=== PATIENT | female | born 1995 | race Caucasian/White ===

== ENCOUNTER 2017-10-10 08:27 | Emergency (ER) | payer BC ==
[2017-10-10 08:27] VITALS: BP_SYST 121
[2017-10-10 08:55] VITALS: BP_SYST 129
== END 2017-10-10 08:55 | disposition home or self-care (01) ==
LOC: SED 08:27
DX: O26.893 Other specified pregnancy related conditions, third trimester (principal); Z3A.31 31 weeks gestation of pregnancy; V43.52XA Car driver injured in collision with other type car in traffic accident, initial encounter; Y93.89 Activity, other specified; Y92.410 Unspecified street and highway as the place of occurrence of the external cause; Y99.8 Other external cause status
CPT/HCPCS: 99281; 99283

== ENCOUNTER 2017-10-10 09:30 | Observation (INO) | payer BC ==
[~2017-10-10] VITALS: Ht 172.7 cm; Wt 72.6 kg
[2017-10-10 10:12] VITALS: BP_SYST 109
== END 2017-10-10 13:24 | disposition home or self-care (01) ==
LOC: SPU 09:30
PROVIDERS: ADMIT Obstetrics & Gynecology; ATTEND Obstetrics & Gynecology
DX: Z04.1 Encounter for examination and observation following transport accident (principal); Z3A.30 30 weeks gestation of pregnancy
CPT/HCPCS: 76805-TC; 81002-TC; G0378

== ENCOUNTER 2017-11-27 08:45 | Inpatient (IN) | payer BC ==
[~2017-11-27] VITALS: Ht 170.2 cm; Wt 76.2 kg
[2017-11-27] MEDS ORDERED: OXYTOCIN/0.9 % SODIUM CHLORIDE 1,000 ML IV SCH ×2 (09:08→23:11)
[2017-11-27] MEDS ORDERED: LR 1,000 ML IV SCH (09:08)
[2017-11-27] MEDS ORDERED: NALBUPHINE HCL 10 MG/ML AMP IVP PRN (09:15)
[2017-11-27] MEDS ORDERED: TERBUTALINE SULFATE 1 MG/ML VIAL SUBCUT ONE (09:15)
[2017-11-27 10:00] LABS: HEMATOCRIT 32.5 % (36-48); MEAN CORPUSCULAR HEMOGLOBIN 30 pg (27-31); MEAN CORPUSCULAR HGB CONC 34 % (32-36); MEAN CORPUSCULAR VOLUME 90 fL (79.0-98.0); PLATELET COUNT (AUTO) 305 K/uL (130-430); RED BLOOD CELL COUNT(AUTO) 3.62 MIL/uL (4.2-6.2); RED CELL DISTRIBUTION WIDTH 12.9 % (9.0-15.0); WHITE BLOOD COUNT (AUTO) 10.9 K/uL (4.5-11.0)
[2017-11-27 10:25] LABS: BAND % (MANUAL) 3 % (0-6); BASOPHILS % (MANUAL) 0 % (0-2); EOSINOPHILS % (MANUAL) 4 % (0-7); LYMPHOCYTES % (MANUAL) 12 % (20-46); MONOCYTES % (MANUAL) 3 % (0-11)
[2017-11-27 10:28] VITALS: BP_SYST 126
[2017-11-27 11:16] LABS: BARBITURATE, URINE NEGATIVE (NEG <=200); BENZODIAZEPINE, URINE NEGATIVE (NEG <=150); CANNABINOID, URINE NEGATIVE (NEG <=50); COCAINE, URINE NEGATIVE (NEG <=150); METHAMPHETAMINES SCREEN,URINE NEGATIVE (NEG <=500); OPIATE, URINE NEGATIVE (NEG <=100); PHENCYCLIDINE SCREEN,URINE NEGATIVE (NEG <=25); UR TRICYCLIC ANTIDEPRESSANTS NEGATIVE (NEG <=300); URINE AMPHETAMINE NEGATIVE (NEG <=500); URINE METHADONE NEGATIVE (NEG <=200); URINE OXYCODONE SCREEN NEGATIVE (NEG <=100); URINE PROPOXYPHENE SCREEN NEGATIVE (NEG <=300)
[2017-11-27] MEDS ORDERED: AMPICILLIN SODIUM 2 GM in NS 100 ML IV ONE (12:00)
[2017-11-27] MEDS: AMPICILLIN SODIUM 1 GM in NS 50 ML IV SCH ×2 (16:05→20:04)
[2017-11-27] MEDS ORDERED: fentaNYL CITRATE/PF 100 MCG/2 ML AMP ONE (16:37)
[2017-11-27] MEDS ORDERED: ROPIVACAINE 0.2% 100 ML ONE (16:37)
[2017-11-27] MEDS ORDERED: LR 500 ML IV ONE (16:52)
[2017-11-27] MEDS ORDERED: FENT2mCg/mL-ROPIVA0.2%/NS EPID 150 ML EP SCH (17:00)
[2017-11-27] MEDS ORDERED: TEMAZEPAM 15 MG CAPSULE PO PRN (21:00)
[2017-11-27] MEDS ORDERED: ONDANSETRON HCL 4 MG/2 ML VIAL IVP PRN (21:00)
[2017-11-27] MEDS ORDERED: ONDANSETRON HCL 4 MG/2 ML VIAL ONE (21:02)
[2017-11-27] MEDS ORDERED: OXYTOCIN/0.9 % SODIUM CHLORIDE 1,000 ML IV ONE (23:11)
[2017-11-27] MEDS ORDERED: HYDROCORTISONE 0.5%, 28.35 GM TOPICAL CREAM TP PRN (23:15)
[2017-11-27] MEDS ORDERED: MEASLES,MUMPS&RUBELLA VACC/PF 12500 UNIT/0.5 ML VIAL SUBQ PRN (23:15)
[2017-11-27] MEDS ORDERED: RHO(D) IMMUNE GLOBULIN/MALTOSE 1500 UNITS/1.3 ML (WINHRO) IM PRN (23:15)
[2017-11-27] MEDS ORDERED: DIPH-TET-PERTUS Vaccine 0.5 ML VIAL (ADACEL) I.M. PRN (23:15)
[2017-11-27] MEDS ORDERED: ACETAMINOPHEN 325 MG TABLET PO PRN (23:15)
[2017-11-27] MEDS ORDERED: DERMOPLAST SPRAY TP PRN (23:15)
[2017-11-27] MEDS ORDERED: DOCUSATE SODIUM 100 MG CAPSULE PO PRN (23:15)
[2017-11-27] MEDS ORDERED: METHYLERGONOVINE MALEATE 0.2 MG TABLET PO PRN (23:15)
[2017-11-27] MEDS ORDERED: LANOLIN 7 GM OINT. TP PRN (23:15)
[2017-11-27] MEDS ORDERED: GLYCERIN/WITCH HAZEL (TUCKS PADS) TP PRN (23:15)
[2017-11-27] MEDS ORDERED: ANUSOL 1 EA SUPP.RECT (PREPARATION H) RC PRN (23:15)
[2017-11-27] MEDS ORDERED: SENNOSIDES/DOCUSATE SODIUM 1 TAB TABLET(SENOKOT-S) PO PRN (23:15)
[2017-11-28] MEDS: IBUPROFEN 600 MG TABLET PO SCH ×4 (00:03→17:34)
[2017-11-28 05:48] LABS: BASOPHILS % (AUTO) 0.2 % (0.0-2.0); EOSINOPHILS # (AUTO) 0.2 K/uL (0.0-0.4); EOSINOPHILS % (AUTO) 1.2 % (0.0-4.0); HEMATOCRIT 28.8 % (36-48); HEMOGLOBIN 9.8 g/dL (12.0-16.0); LYMPHOCYTES # (AUTO) 1.8 K/uL (1.0-5.5); LYMPHOCYTES % (AUTO) 9.7 % (20.5-51.5); MEAN CORPUSCULAR HEMOGLOBIN 30 pg (27-31); MEAN CORPUSCULAR HGB CONC 34 % (32-36); MEAN CORPUSCULAR VOLUME 89 fL (79.0-98.0); MONOCYTES # (AUTO) 1.6 K/uL (0.0-1.0); MONOCYTES % (AUTO) 8.4 % (1.7-9.3); NEUTROPHILS # (AUTO) 14.9 K/uL (1.8-7.7); NEUTROPHILS % (AUTO) 80.5 % (40.0-70.0); PLATELET COUNT (AUTO) 272 K/uL (130-430); RED BLOOD CELL COUNT(AUTO) 3.25 MIL/uL (4.2-6.2); RED CELL DISTRIBUTION WIDTH 12.9 % (9.0-15.0); WHITE BLOOD COUNT (AUTO) 18.5 K/uL (4.5-11.0)
[2017-11-28] MEDS ORDERED: BUPIVACAINE /PF 0.25% 30 ML VIAL INJ ONE (08:57)
[2017-11-29] MEDS: IBUPROFEN 600 MG TABLET PO SCH ×2 (00:06→05:46)
== END 2017-11-29 11:10 | disposition home or self-care (01) | DRG 775 ==
LOC: SPU 08:45
PROVIDERS: ADMIT Obstetrics & Gynecology; ATTEND Obstetrics & Gynecology
PROC: 10E0XZZ Delivery of Products of Conception, External Approach (ICD-10-PCS; principal; 2017-11-27)
PROC: 0UQMXZZ Repair Vulva, External Approach (ICD-10-PCS; 2017-11-27)
PROC: 3E0R3BZ Introduction of Anesthetic Agent into Spinal Canal, Percutaneous Approach (ICD-10-PCS; 2017-11-27)
PROC: 00HU33Z Insertion of Infusion Device into Spinal Canal, Percutaneous Approach (ICD-10-PCS; 2017-11-27)
PROC: 30233S1 Transfusion of Nonautologous Globulin into Peripheral Vein, Percutaneous Approach (ICD-10-PCS; 2017-11-28)
DX: O42.92 Full-term premature rupture of membranes, unspecified as to length of time between rupture and onset of labor (principal); O70.0 First degree perineal laceration during delivery; O71.89 Other specified obstetric trauma; Z3A.37 37 weeks gestation of pregnancy; Z37.0 Single live birth
CPT/HCPCS: 36415; 80307; 81002-TC; 85007; 85025; 85027; 86592; 86870; 86886; 86900; 86901; J0290; J2405; J2590; J2790; J2795; J3010; J3490; J7120